=== PATIENT | male | born 1980 | race Hispanic/Latino ===

== ENCOUNTER 2021-03-02 22:37 | Emergency (ER) | payer OTHER, SELFPAY ==
[2021-03-02 23:36] LABS: #Basophils 0.1 thou/uL (0.0-0.2); #Lymphocytes 1.7 thou/uL (1.20-3.40); #Monocytes 0.9 thou/uL (0.11-0.59); #Neutrophils 7.8 thou/uL (1.40-6.50); %Basophils 0.6 % (0.0-1.0); %Eosinophils 0.3 % (0.0-10.0); %Lymphocytes 16.2 % (21.0-51.0); %Monocytes 8.5 % (0.0-10.0); %Neutrophils 74.5 % (42.0-75.0); Hemoglobin 14.9 g/dL (14.0-18.0); Mean Corpuscular HGB CONC 35.1 g/dL (32.0-36.0); Mean Corpuscular Hemoglobin 31.9 pg (27.0-31.0); Mean Platelet Volume 7.4 fL (7.4-10.4); Platelet Count 330 thou/uL (130-400); RBC Distribution Width 12.1 % (11.5-14.5); Red Blood Cell (RBC) Count 4.66 mill/uL (4.70-6.10); White Blood Cell (WBC) Count 10.5 thou/uL (4.8-10.8)
[2021-03-02 23:59] LABS: ALT (SGPT) 19 U/L (8-55); AST (SGOT) 16 U/L (5-34); Alkaline Phosphatase 84 U/L (40-110); Anion Gap 14 mmol/L (10-20); BUN (Urea Nitrogen) 12 mg/dL (8.9-20.6); Bilirubin, Total 0.4 mg/dL (0.2-1.2); CK (CPK) 80 U/L (30-200); Calc. Creatinine Clearance 0 mL/min (70-130); Calcium 9.5 mg/dL (7.8-10.44); Carbon Dioxide 24 mmol/L (22-29); Chloride 99 mmol/L (98-107); Globulin 3.2 g/dL (2.4-3.5); Glucose 440 mg/dL (70-105); Potassium 3.9 mmol/L (3.5-5.1); Protein, Total 7.2 g/dL (6.0-8.3); Sodium 133 mmol/L (136-145)
[2021-03-03 11:14] LABS: SARS-CoV-2 PCR by NAA Not Detected (NotDetected)
== END 2021-03-03 01:07 | disposition home or self-care (01) ==
LOC: ERS 22:37
DX: E86.0 Dehydration (principal); E11.9 Type 2 diabetes mellitus without complications; F17.210 Nicotine dependence, cigarettes, uncomplicated; Z20.822 Contact with and (suspected) exposure to COVID-19; Z79.84 Long term (current) use of oral hypoglycemic drugs; Z79.899 Other long term (current) drug therapy
CPT/HCPCS: 36416; 80053; 82550; 84484; 85025; 99284; U0003; U0005

== ENCOUNTER 2021-03-05 07:02 | Inpatient (IN) | payer SELFPAY ==
[2021-03-05] MEDS ORDERED: Acetaminophen 500 MG TAB ONE (07:13)
[2021-03-05] MEDS ORDERED: cefTRIAXone\\ROCEPHIN 2 GM VIAL ONE (08:11)
[2021-03-05 08:14] LABS: #Lymphocytes 1.3 thou/uL (1.20-3.40); #Monocytes 0.6 thou/uL (0.11-0.59); %Eosinophils 0.1 % (0.0-10.0); %Lymphocytes 11.9 % (21.0-51.0); %Monocytes 5.8 % (0.0-10.0); %Neutrophils 82.1 % (42.0-75.0); Hemoglobin 13.4 g/dL (14.0-18.0); Mean Corpuscular HGB CONC 31.8 g/dL (32.0-36.0); Mean Corpuscular Volume 91.1 fL (78.0-98.0); Mean Platelet Volume 7.4 fL (7.4-10.4); Platelet Count 319 thou/uL (130-400); Red Blood Cell (RBC) Count 4.61 mill/uL (4.70-6.10); White Blood Cell (WBC) Count 10.9 thou/uL (4.8-10.8)
[2021-03-05 08:28] LABS: ALT (SGPT) 77 U/L (8-55); AST (SGOT) 61 U/L (5-34); Albumin 3.7 g/dL (3.5-5.0); Alkaline Phosphatase 126 U/L (40-110); Anion Gap 14 mmol/L (10-20); BUN (Urea Nitrogen) 12 mg/dL (8.9-20.6); Bilirubin, Total 0.5 mg/dL (0.2-1.2); Calc. Creatinine Clearance 0 mL/min (70-130); Calcium 8.7 mg/dL (7.8-10.44); Carbon Dioxide 24 mmol/L (22-29); Chloride 95 mmol/L (98-107); Globulin 3.5 g/dL (2.4-3.5); Glucose 242 mg/dL (70-105); Potassium 3.8 mmol/L (3.5-5.1); Protein, Total 7.2 g/dL (6.0-8.3); Sodium 129 mmol/L (136-145)
[2021-03-05] MEDS ORDERED: Ondansetron PF 4 MG/2 ML Vial IVP PRN (09:44)
[2021-03-05] MEDS ORDERED: Senokot S 8.6-50 MG TAB PO PRN (09:44)
[2021-03-05] MEDS ORDERED: Enoxaparin Sodium 40 MG/0.4 ML SYRINGE SC SCH (09:45)
[2021-03-05] MEDS ORDERED: Azithromycin 500 MG VIAL ONE (09:52)
[2021-03-05] MEDS ORDERED: Ketorolac Tromethamine 30 MG/ML VIAL ONE (09:52)
[2021-03-05] MEDS ORDERED: Dextrose 5% in Water 1,000 ML IV PRN (10:03)
[2021-03-05] MEDS ORDERED: Dextrose 50% Abboject 50 ML SYRINGE SLOW IVP PRN (10:03)
[2021-03-05 10:54] LABS: Bacteria/HPF None Seen HPF (None Seen); Bilirubin Negative (Negative); Blood, Urine Negative (Negative); Clarity Clear (Clear); Glucose, Urine (Dipstick) Greater than 1000 mg/dL (Negative); Ketone, Urine Greater than 150 mg/dL (Negative); Leukocyte Negative Leu/uL (Negative); Nitrite Negative (Negative); Protein, Urine (Dipstick) 100 mg/dL (Neg-Trace); RBC/HPF 0-3 HPF (0-3); Specific Gravity, Urine 1.042 (1.002-1.036); Squamous Epithelial None Seen HPF (0-3); Urobilinogen Normal mg/dL (Less than 2); WBC/HPF 0-3 HPF (0-3)
[2021-03-05 11:54] LABS: Troponin I Less than 0.010 ng/mL (< 0.028)
[2021-03-05 12:10] LABS: HBCM Index 0.07 S/CO (0-0.79); HBSAg Index 0.22 S/CO (0-0.99); Hep A IgM AB Non-Reactive (NonReactive); Hep A IgM S/CO 0.21 S/CO (0-0.79); Hep B Surf Ag Non-Reactive S/CO (NonReactive); Hep C IgG Ab Non-Reactive (NonReactive); Hepatitis B Core IgM Abs Non-Reactive (NonReactive)
[2021-03-05] MEDS ORDERED: Enoxaparin Sodium 40 MG/0.4 ML SYRINGE ONE (12:36)
[2021-03-05] MEDS: Sodium Chloride 0.9% 1,000 ML IV SCH ×3 (12:45→21:22)
[2021-03-05 14:01] LABS: Troponin I Less than 0.010 ng/mL (< 0.028)
[2021-03-05] MEDS ORDERED: Acetaminophen 325 MG TAB ONE (14:02)
[2021-03-05 14:05] LABS: Hemoglobin A1c 10.9 % (4.0-6.0)
[2021-03-05] MEDS: Acetaminophen 325 MG TAB PO PRN ×3 (14:46→20:28)
[2021-03-05 15:11] LABS: Free T4 (Free Thyroxine) 0.75 ng/dL (0.70-1.48)
[2021-03-05] MEDS: HumaLOG 300 UNITS/3 ML VIAL SC PRN (16:07)
[2021-03-05 16:30] VITALS: BMI 29.9
[2021-03-06] MEDS: Acetaminophen 325 MG TAB PO PRN ×4 (00:35→20:51)
[2021-03-06 07:54] LABS: #Lymphocytes 1.5 thou/uL (1.20-3.40); #Monocytes 0.3 thou/uL (0.11-0.59); %Basophils 0.1 % (0.0-1.0); %Eosinophils 0.1 % (0.0-10.0); %Lymphocytes 15.2 % (21.0-51.0); %Monocytes 3.2 % (0.0-10.0); %Neutrophils 81.5 % (42.0-75.0); Hemoglobin 12.9 g/dL (14.0-18.0); Mean Corpuscular HGB CONC 33.3 g/dL (32.0-36.0); Mean Corpuscular Hemoglobin 30.6 pg (27.0-31.0); Mean Corpuscular Volume 91.7 fL (78.0-98.0); Mean Platelet Volume 7.4 fL (7.4-10.4); Platelet Count 316 thou/uL (130-400); Red Blood Cell (RBC) Count 4.23 mill/uL (4.70-6.10); White Blood Cell (WBC) Count 9.8 thou/uL (4.8-10.8)
[2021-03-06] MEDS: metFORMIN 500 MG TAB PO SCH ×2 (09:26→17:53)
[2021-03-06] MEDS: PARoxetine 20 MG TAB PO SCH (09:26)
[2021-03-06] MEDS: Sodium Chloride 0.9% 1,000 ML IV SCH ×2 (09:26→17:53)
[2021-03-06] MEDS: glipiZIDE 10 MG TAB PO SCH ×2 (09:26→20:52)
[2021-03-06] MEDS: Enoxaparin Sodium 40 MG/0.4 ML SYRINGE SC SCH (09:26)
[2021-03-06] MEDS: HumaLOG 300 UNITS/3 ML VIAL SC PRN ×2 (11:21→21:02)
[2021-03-06] MEDS: Guaifenesin DM 100-10/5 ML UDCUP PO PRN (20:51)
[2021-03-06] MEDS: Benzonatate 100 MG CAP PO PRN (20:51)
[2021-03-07 04:58] LABS: #Basophils 0.1 thou/uL (0.0-0.2); #Lymphocytes 1.5 thou/uL (1.20-3.40); #Monocytes 0.4 thou/uL (0.11-0.59); #Neutrophils 5.7 thou/uL (1.40-6.50); %Eosinophils 0.1 % (0.0-10.0); %Monocytes 5.2 % (0.0-10.0); %Neutrophils 73.7 % (42.0-75.0); Hemoglobin 12.3 g/dL (14.0-18.0); Mean Corpuscular HGB CONC 33.7 g/dL (32.0-36.0); Mean Corpuscular Hemoglobin 30.5 pg (27.0-31.0); Mean Corpuscular Volume 90.4 fL (78.0-98.0); Mean Platelet Volume 7.2 fL (7.4-10.4); Platelet Count 342 thou/uL (130-400); RBC Distribution Width 12.1 % (11.5-14.5); Red Blood Cell (RBC) Count 4.03 mill/uL (4.70-6.10); White Blood Cell (WBC) Count 7.7 thou/uL (4.8-10.8)
[2021-03-07 05:22] LABS: ALT (SGPT) 58 U/L (8-55); AST (SGOT) 48 U/L (5-34); Albumin 3.1 g/dL (3.5-5.0); Alkaline Phosphatase 94 U/L (40-110); Anion Gap 11 mmol/L (10-20); BUN (Urea Nitrogen) 8 mg/dL (8.9-20.6); Bilirubin, Total 0.3 mg/dL (0.2-1.2); Calc. Creatinine Clearance 174 mL/min (70-130); Calcium 8.1 mg/dL (7.8-10.44); Carbon Dioxide 26 mmol/L (22-29); Chloride 100 mmol/L (98-107); Globulin 2.9 g/dL (2.4-3.5); Glucose 138 mg/dL (70-105); Potassium 3.1 mmol/L (3.5-5.1); Sodium 134 mmol/L (136-145)
[2021-03-07] MEDS: Sodium Chloride 0.9% 1,000 ML IV SCH ×3 (06:02→22:32)
[2021-03-07] MEDS: Acetaminophen 325 MG TAB PO PRN ×3 (06:24→20:55)
[2021-03-07] MEDS: Guaifenesin DM 100-10/5 ML UDCUP PO PRN (06:24)
[2021-03-07] MEDS ORDERED: Potassium Chloride 20 MEQ TAB PO SCH (08:45)
[2021-03-07] MEDS: Enoxaparin Sodium 40 MG/0.4 ML SYRINGE SC SCH (09:29)
[2021-03-07] MEDS: metFORMIN 500 MG TAB PO SCH ×2 (09:29→16:39)
[2021-03-07] MEDS: PARoxetine 20 MG TAB PO SCH (09:29)
[2021-03-07] MEDS: glipiZIDE 10 MG TAB PO SCH ×2 (09:29→21:30)
[2021-03-07] MEDS: HumaLOG 300 UNITS/3 ML VIAL SC PRN ×2 (12:04→17:33)
[2021-03-07] MEDS ORDERED: Albuterol Sulfate 2.5 mg/3 ml Neb EZPAP PRN (16:34)
[2021-03-07] MEDS: Benzonatate 100 MG CAP PO PRN (16:39)
[2021-03-07 17:24] LABS: Potassium 3.2 mmol/L (3.5-5.1)
[2021-03-07] MEDS ORDERED: Lantus 1000 UNITS/10 ML VIAL SC SCH (21:00)
[2021-03-08 05:03] LABS: #Lymphocytes 1.6 thou/uL (1.20-3.40); #Monocytes 0.6 thou/uL (0.11-0.59); #Neutrophils 5.2 thou/uL (1.40-6.50); %Basophils 0.5 % (0.0-1.0); %Eosinophils 0.6 % (0.0-10.0); %Lymphocytes 21.4 % (21.0-51.0); %Monocytes 8.5 % (0.0-10.0); Hemoglobin 12.2 g/dL (14.0-18.0); Mean Corpuscular HGB CONC 33.7 g/dL (32.0-36.0); Mean Corpuscular Hemoglobin 30.8 pg (27.0-31.0); Mean Corpuscular Volume 91.5 fL (78.0-98.0); Mean Platelet Volume 7.6 fL (7.4-10.4); Platelet Count 401 thou/uL (130-400); RBC Distribution Width 12.2 % (11.5-14.5); Red Blood Cell (RBC) Count 3.95 mill/uL (4.70-6.10); White Blood Cell (WBC) Count 7.5 thou/uL (4.8-10.8)
[2021-03-08 05:34] LABS: ALT (SGPT) 51 U/L (8-55); AST (SGOT) 43 U/L (5-34); Albumin 3.1 g/dL (3.5-5.0); Alkaline Phosphatase 89 U/L (40-110); Anion Gap 13 mmol/L (10-20); BUN (Urea Nitrogen) 6 mg/dL (8.9-20.6); Bilirubin, Total 0.5 mg/dL (0.2-1.2); Calc. Creatinine Clearance 194 mL/min (70-130); Carbon Dioxide 22 mmol/L (22-29); Chloride 100 mmol/L (98-107); Globulin 2.8 g/dL (2.4-3.5); Glucose 151 mg/dL (70-105); Potassium 3.2 mmol/L (3.5-5.1); Protein, Total 5.9 g/dL (6.0-8.3); Sodium 132 mmol/L (136-145)
[2021-03-08] MEDS: Acetaminophen 325 MG TAB PO PRN ×3 (06:15→20:24)
[2021-03-08] MEDS ORDERED: Electrolyte Replacement Protocol 1 EACH FS PRN (06:44)
[2021-03-08] MEDS ORDERED: Potassium Chloride 20 MEQ TAB PO SCH ×2 (06:45→08:30)
[2021-03-08] MEDS: metFORMIN 500 MG TAB PO SCH ×2 (07:29→17:33)
[2021-03-08] MEDS ORDERED: Magnesium 2 GM/50 ML 2 GM in Premix Bag 1 BAG IVPB SCH (07:45)
[2021-03-08] MEDS: glipiZIDE 10 MG TAB PO SCH ×2 (08:10→20:19)
[2021-03-08] MEDS: Enoxaparin Sodium 40 MG/0.4 ML SYRINGE SC SCH (08:10)
[2021-03-08] MEDS: PARoxetine 20 MG TAB PO SCH (08:10)
[2021-03-08] MEDS: Sodium Chloride 0.9% 1,000 ML IV SCH (08:12)
[2021-03-08] MEDS ORDERED: Lantus 1000 UNITS/10 ML VIAL SC SCH (09:00)
[2021-03-08] MEDS: Lantus 1000 UNITS/10 ML VIAL SC SCH ×2 (10:11→20:19)
[2021-03-08] MEDS: HumaLOG 300 UNITS/3 ML VIAL SC PRN ×2 (11:23→17:33)
[2021-03-08] MEDS: NS 0.9% w/ 40 MEQ KCL 1,000 ML IV SCH (15:43)
[2021-03-08 16:55] LABS: Potassium 3.7 mmol/L (3.5-5.1)
[2021-03-09] MEDS: NS 0.9% w/ 40 MEQ KCL 1,000 ML IV SCH ×2 (03:18→16:28)
[2021-03-09] MEDS: Acetaminophen 325 MG TAB PO PRN (03:23)
[2021-03-09 04:43] LABS: #Eosinphils 0.1 thou/uL (0.0-0.7); #Monocytes 0.6 thou/uL (0.11-0.59); #Neutrophils 4.8 thou/uL (1.40-6.50); %Basophils 0.5 % (0.0-1.0); %Eosinophils 1.9 % (0.0-10.0); %Lymphocytes 26.7 % (21.0-51.0); %Monocytes 7.9 % (0.0-10.0); Hemoglobin 12.5 g/dL (14.0-18.0); Mean Corpuscular HGB CONC 34.9 g/dL (32.0-36.0); Mean Corpuscular Hemoglobin 31.9 pg (27.0-31.0); Mean Corpuscular Volume 91.5 fL (78.0-98.0); Mean Platelet Volume 7.2 fL (7.4-10.4); Platelet Count 439 thou/uL (130-400); RBC Distribution Width 12.3 % (11.5-14.5); White Blood Cell (WBC) Count 7.6 thou/uL (4.8-10.8)
[2021-03-09 05:06] LABS: Anion Gap 12 mmol/L (10-20); BUN (Urea Nitrogen) 8 mg/dL (8.9-20.6); Calc. Creatinine Clearance 179 mL/min (70-130); Calcium 8.5 mg/dL (7.8-10.44); Carbon Dioxide 24 mmol/L (22-29); Chloride 103 mmol/L (98-107); Glucose 140 mg/dL (70-105); Potassium 3.7 mmol/L (3.5-5.1); Sodium 135 mmol/L (136-145)
[2021-03-09] MEDS ORDERED: Magnesium 2 GM/50 ML 2 GM in Premix Bag 1 BAG IVPB SCH (06:30)
[2021-03-09] MEDS: PARoxetine 20 MG TAB PO SCH (08:37)
[2021-03-09] MEDS: metFORMIN 500 MG TAB PO SCH ×2 (08:37→16:28)
[2021-03-09] MEDS: glipiZIDE 10 MG TAB PO SCH ×2 (08:37→16:28)
[2021-03-09] MEDS: Enoxaparin Sodium 40 MG/0.4 ML SYRINGE SC SCH (08:38)
[2021-03-09] MEDS: Lantus 1000 UNITS/10 ML VIAL SC SCH ×2 (08:39→22:22)
[2021-03-09] MEDS: HumaLOG 300 UNITS/3 ML VIAL SC PRN (11:28)
[2021-03-10] MEDS: Acetaminophen 325 MG TAB PO PRN (02:12)
[2021-03-10] MEDS: NS 0.9% w/ 40 MEQ KCL 1,000 ML IV SCH (05:45)
[2021-03-10] MEDS: HumaLOG 300 UNITS/3 ML VIAL SC PRN ×2 (05:47→13:13)
[2021-03-10] MEDS: glipiZIDE 10 MG TAB PO SCH (08:58)
[2021-03-10] MEDS: PARoxetine 20 MG TAB PO SCH (08:59)
[2021-03-10] MEDS: metFORMIN 500 MG TAB PO SCH (08:59)
[2021-03-10] MEDS: Lantus 1000 UNITS/10 ML VIAL SC SCH (09:00)
[2021-03-10] MEDS: Enoxaparin Sodium 40 MG/0.4 ML SYRINGE SC SCH (09:00)
[2021-03-10 09:58] VITALS: BP 121/69; TEMP 98.4
== END 2021-03-10 14:52 | disposition home or self-care (01) | DRG 194 ==
LOC: ERS 07:02 → ERHOLD 09:50 → OBSVTOIN 14:12 → 2NO 15:56 → ONC 03-08 13:01
PROVIDERS: ADMIT Internal Medicine; ATTEND Internal Medicine
DX: J13 Pneumonia due to Streptococcus pneumoniae (principal); E87.1 Hypo-osmolality and hyponatremia; E11.65 Type 2 diabetes mellitus with hyperglycemia; I48.91 Unspecified atrial fibrillation; F17.210 Nicotine dependence, cigarettes, uncomplicated; F32.9 Major depressive disorder, single episode, unspecified; Z20.822 Contact with and (suspected) exposure to COVID-19; R10.11 Right upper quadrant pain; E86.0 Dehydration; R74.01 Elevation of levels of liver transaminase levels; Z79.84 Long term (current) use of oral hypoglycemic drugs; E78.5 Hyperlipidemia, unspecified
CPT/HCPCS: 36415; 36416; 71045; 76705; 80048; 80053; 80074; 81003; 81015; 83036; 83605; 83735; 84439; 84443; 84481; 84484; 85025; 87040; 87070; 87086; 87205; 87804; 93005; 93306; 94640; 96365; 96367; 96375; G0378; J0456; J0696; J1650; J1815; J1885; J1956; J3475; J3480; J7611